=== PATIENT | female | born 1970 | race African-American/Black ===

== ENCOUNTER → 2017-12-10 | Outpatient (CLI) | payer OTHER ==
--- NOTE | 2017-12-10 17:12 | WOMENS IMAGING REPORT ---
EXAM DESCRIPTION: LEFT DIAGNOSTIC MAMMO W/CAD; U/S BREAST UNILAT LIMITED COMPLETED DATE/TIME: 12/10/2017 1:52 pm; 12/10/2017 2:21 pm REASON FOR STUDY: INCONCLUSIVE MAMMO; LEFT BREAST DENSITY R92.2 INCONCLUSIVE MAMMOGRAM COMPARISON: Outside screening mammo 10/28/2017 TECHNIQUE: Cone compression craniocaudal and mediolateral oblique images of the breast recorded with digital acquisition. Whole breast 90 mediolateral view left breast Left breast ultrasound LIMITATIONS: None. FINDINGS: BREAST: Left MASSES: In the left upper outer quadrant about 5 to 6 cm from the nipple there are [address] well-circumscribed low-density nodules which were subsequently shown to represent breast parenchy mal cysts. CALCIFICATIONS: No new or suspicious calcifications. ARCHITECTURAL DISTORTION: None. DEVELOPING DENSITY: None. ASYMMETRY: None noted. OTHER: No other significant findings. Read with the assistance of CAD. .[facility] - R2 Cenova Version 1.3 .[facility] Imaging - R2 Cenova Version 1.3 .[facility] - R2 Cenova Version 2.4 .[facility] [place] - R2 Cenova Version 2.4 .[facility] - R2 [employer] Instructor Version 9.2 Left breast ultrasound: Ultrasound of the left upper outer quadrant demonstrates small left breast cyst in the 0200 hours pos ition upper outer quadrant. 5 mm and 3 mm cysts are seen at 12 o'clock, 8 mm cyst at 12 o'clock, 5 m m cyst at 2 o'clock. This correlates with the mammographic findings. IMPRESSION: No mammographic or sonographic evidence for malignancy left breast BREAST DENSITY: b. There are scattered areas of fibroglandular density. BIRAD: 2 Benign findings. RECOMMENDATION: RECOMMENDED FOLLOW UP: Please continue yearly bilateral screening mammography in Oct. Please consider bilateral screening tomosynthesis SPECIFIC INTERVENTION/IMAGING/CONSULTATION RECOMMENDED:No additional intervention/ imaging/consultati on needed at this time. COMMUNICATION:Patient notified by letter COMMENT: The patient has been notified of the results by letter per MQSA requirements. Additional no tification policies are in place for contacting patient with suspicious or incomplete findings. Quality ID #[id number]: The [employer] recommends an annual screening mammogram for women aged 40 years or over. This facility utilizes a reminder system to ensure that all patients receive reminder letters, and/or direct phone calls for appointments. This includes reminders for routine scr eening mammograms, diagnostic mammograms, or other Breast Imaging Interventions when appropriate. Th is patient will be placed in the appropriate reminder system. The [employer] (ACR) has developed recommendations for screening MRI of the breast s in certain patient populations, to be used in conjunction with mammography. Breast MRI surveillanc e may be appropriate for women with more than 20% lifetime risk of developing breast cancer as deter mined by genetic testing, significant family history of the disease, or history of mantle radiation f or Hodgkins Disease. ACR Practice Guidelines 2008. TECHNICAL DOCUMENTATION: FINDING NUMBER: (1) ASSESSMENT: (1) JOB ID: [id number] [email or web address]- All Rights Reserved
--- NOTE | 2017-12-10 17:12 | WOMENS IMAGING REPORT ---
EXAM DESCRIPTION: LEFT DIAGNOSTIC MAMMO W/CAD; U/S BREAST UNILAT LIMITED COMPLETED DATE/TIME: 12/10/2017 1:52 pm; 12/10/2017 2:21 pm REASON FOR STUDY: INCONCLUSIVE MAMMO; LEFT BREAST DENSITY R92.2 INCONCLUSIVE MAMMOGRAM COMPARISON: Outside screening mammo 10/28/2017 TECHNIQUE: Cone compression craniocaudal and mediolateral oblique images of the breast recorded with digital acquisition. Whole breast 90 mediolateral view left breast Left breast ultrasound LIMITATIONS: None. FINDINGS: BREAST: Left MASSES: In the left upper outer quadrant about 5 to 6 cm from the nipple there are [address] well-circumscribed low-density nodules which were subsequently shown to represent breast parenchy mal cysts. CALCIFICATIONS: No new or suspicious calcifications. ARCHITECTURAL DISTORTION: None. DEVELOPING DENSITY: None. ASYMMETRY: None noted. OTHER: No other significant findings. Read with the assistance of CAD. .[facility] - R2 Cenova Version 1.3 .[facility] Imaging - R2 Cenova Version 1.3 .[facility] Imaging - R2 Cenova Version 2.4 .[facility] - R2 Cenova Version 2.4 .[facility] - R2 [employer] E[employer] Helper Version 9.2 Left breast ultrasound: Ultrasound of the left upper outer quadrant demonstrates small left breast cyst in the 0200 hours pos ition upper outer quadrant. 5 mm and 3 mm cysts are seen at 12 o'clock, 8 mm cyst at 12 o'clock, 5 m m cyst at 2 o'clock. This correlates with the mammographic findings. IMPRESSION: No mammographic or sonographic evidence for malignancy left breast BREAST DENSITY: b. There are scattered areas of fibroglandular density. BIRAD: 2 Benign findings. RECOMMENDATION: RECOMMENDED FOLLOW UP: Please continue yearly bilateral screening mammography in Oct. Please consider bilateral screening tomosynthesis SPECIFIC INTERVENTION/IMAGING/CONSULTATION RECOMMENDED:No additional intervention/ imaging/consultati on needed at this time. COMMUNICATION:Patient notified by letter COMMENT: The patient has been notified of the results by letter per MQSA requirements. Additional no tification policies are in place for contacting patient with suspicious or incomplete findings. Quality ID #[id number]: The [employer] recommends an annual screening mammogram for women aged 40 years or over. This facility utilizes a reminder system to ensure that all patients receive reminder letters, and/or direct phone calls for appointments. This includes reminders for routine scr eening mammograms, diagnostic mammograms, or other Breast Imaging Interventions when appropriate. Th is patient will be placed in the appropriate reminder system. The [employer] (ACR) has developed recommendations for screening MRI of the breast s in certain patient populations, to be used in conjunction with mammography. Breast MRI surveillanc e may be appropriate for women with more than 20% lifetime risk of developing breast cancer as deter mined by genetic testing, significant family history of the disease, or history of mantle radiation f or Hodgkins Disease. ACR Practice Guidelines 2008. TECHNICAL DOCUMENTATION: FINDING NUMBER: (1) ASSESSMENT: (1) JOB ID: [id number] [employer]- All Rights Reserved
== END ==
LOC: WI 13:11
PROVIDERS: ATTEND Family Medicine
DX: N63.21 Unspecified lump in the left breast, upper outer quadrant (principal)
CPT/HCPCS: 76642

== ENCOUNTER → 2020-08-10 | Outpatient (CLI) | payer OTHER ==
--- NOTE | 2020-08-10 14:42 | WOMENS IMAGING REPORT ---
EXAM DESCRIPTION: BONE DENSITY HIP/SPINE IMAGES COMPLETED DATE/TIME: 08/10/2020 1:52 pm REASON FOR STUDY: Z13.820 ENCOUNTER FOR SCREENING FOR OSTEOPOROSIS Z12.31 ENCNTR SCREEN MAMMOGRAM F OR MALIGNANT NEOPLASM OF [place] Z13.820 ENCOUNTER FOR SCREENING FOR OSTEOPOROSIS COMPARISON: None. TECHNIQUE: Dual-Energy X-ray Absorptiometry (DEXA) of the AP Spine and Hip. LIMITATIONS: None. FINDINGS: LUMBAR SPINE: The bone mineral density (BMD) measured from L1-L4 in the AP projection correlates with a T-score of 0.3, which is normal as defined by the World Health Organization. BMD Change vs Baseline: N/A HIP: The bone mineral density (BMD) measured in the left hip correlates with a T-score of -0.2 in the femo ral neck, which is normal as defined by the World Health Organization. BMD Change vs Baseline: N/A 10 year Fracture Risk Assessment: Major Osteoporotic Fracture: Not available. Hip Fracture: Not available. IMPRESSION: 1. LUMBAR SPINE WHO CLASSIFICATION: NORMAL. 2. HIP WHO CLASSIFICATION: NORMAL. OVERALL ASSESSMENT: WHO CLASSIFICATION: NORMAL. COMMENT: The World Health Organization defines low BMD as follows: T-score: Normal: At or above -1.0 Osteopenia: Between -1.0 and -2.5 Osteoporosis: At or below -2.5 without fractures Established osteoporosis: At or below -2.5 with fractures In general, you may wish to consider: Diagnosis Treatment Follow-up DEXA Normal BMD Prevention 2-3 years Osteopenia Prevention/Therapy 1-2 years Osteoporosis Therapy Yearly TECHNICAL DOCUMENTATION: JOB ID: [id number] [employer]- All Rights Reserved Reading location - IP/workstation name: [email or web address]
== END ==
LOC: WI 13:23
PROVIDERS: ATTEND Family Medicine
DX: Z12.31 Encounter for screening mammogram for malignant neoplasm of breast (principal); Z13.820 Encounter for screening for osteoporosis
CPT/HCPCS: 77067; 77080